=== PATIENT | female | born 1980 | race Caucasian/White ===

== ENCOUNTER → 2017-06-04 | Outpatient (CLI) | payer OTHER ==
--- NOTE | 2017-06-06 20:06 | PCVCIMAG ---
APPROVED REPORT Study performed: 06/04/2017 11:08:10 EXAM: Comprehensive 2D, Doppler, and color-flow Echocardiogram Patient Location: Echo lab Status: routine BSA: 2.05 HR: 77 bpmBP: 110/68 mmHg Rhythm: NSR Other Information Study Quality: Good Risk Factors: Cardiac Risk Factors: HTN, Hyperlipidemia Indications Chest Pain 2D Dimensions LVEF(%): 59.33 (>50%) IVSd: 8.68 (7-11mm)LVOT Diam: 20.04 (18-24mm) LVDd: 45.57 mm PWd: 8.71 (7-11mm)Ascending Ao: 26.63 (22-36mm) LVDs: 31.27 (25-40mm) Left Atrium: 33.34 (27-40mm) Aortic Root: 29.96 mm LV Single Plane 4CH: 61.13 % LV Single Plane 2CH: 58.34 %Ascencio's LVEF: 59.74 % Biplane EF: 59.8 % Volumes Left Atrial Volume (Systole) Single Plane 4CH: 31.77 mLSingle Plane 2CH: 40.74 mL LA ESV Index: 37.00 mL/m2 Mitral Valve E/A Ratio: 1.3 MV Decel. Time: 217.10 ms MV E Max Brendan.: 0.74 m/s MV A Brendan.: 0.58 m/s Pulmonary Valve PV Peak Brendan.: 1.02 m/sPV Peak Gr.: 4.19 mmHg Pulmonary Vein P Vein S: 0.39 m/sP Vein A: 0.27 m/s P Vein D: 0.53 m/sP Vein A Dur.: 90.0 msec P Vein S/D Ratio: 0.74 Tricuspid Valve TR Peak Brendan.: 1.86 m/sRAP Estimate: 5.00 mmHg TR Peak Gr.: 13.84 mmHg PA Pressure: 19.00 mmHg Left Ventricle The left ventricle is normal size. There is normal LV segmental wall motion. There is normal left ventricular wall thickness. Left ventricular systolic function is normal. The left ventricular ejection fraction is within the normal range. LVEF is 60%. The left ventricular diastolic function is normal. Right Ventricle The right ventricle is normal size. The right ventricular systolic function is normal. Atria The left atrium size is normal. The right atrium size is normal. Aortic Valve The aortic valve is normal in structure. No aortic regurgitation is present. There is no aortic valvular stenosis. Mitral Valve The mitral valve is normal in structure. Trace mitral regurgitation. No evidence of mitral valve stenosis. Tricuspid Valve The tricuspid valve is normal in structure. Trace tricuspid regurgitation. Pulmonary artery pressure 19 mmHg. Pulmonic Valve The pulmonary valve is normal in structure. Trace pulmonic regurgitation. Great Vessels The aortic root is normal in size. IVC is normal in size and collapses with >50% inspiration Pericardium There is no pericardial effusion. <Conclusion> 1. Normal echocardiogram with Doppler EF 60% 2. Structural valve disease was absent. No significant regurgitant or stenotic lesions 3. Pulmonary artery pressure could not be reliably ascertained 4. No pericardial effusion
== END | disposition home or self-care (01) ==
LOC: PCVCIMAG 11:05
PROVIDERS: ATTEND Internal Medicine
DX: I34.0 Nonrheumatic mitral (valve) insufficiency (principal); I07.1 Rheumatic tricuspid insufficiency; I37.1 Nonrheumatic pulmonary valve insufficiency; I10 Essential (primary) hypertension; E78.5 Hyperlipidemia, unspecified; E03.9 Hypothyroidism, unspecified; Z82.49 Family history of ischemic heart disease and other diseases of the circulatory system
CPT/HCPCS: 93306